=== PATIENT | female | born 1995 | race Caucasian/White ===

== ENCOUNTER 2019-04-25 22:03 | Inpatient (IN) ==
[2019-04-25 22:25] LABS: URINE SOURCE VOIDED
[2019-04-25 22:28] LABS: BILIRUBIN URINE NEGATIVE (NEGATIVE); BLOOD URINE NEGATIVE (NEGATIVE); GLUCOSE URINE NEGATIVE (NEGATIVE); KETONE URINE NEGATIVE (NEGATIVE); LEUKOCYTES URINE NEGATIVE (NEGATIVE); NITRITE URINE NEGATIVE (NEGATIVE); PH URINE 6.5; PROTEIN URINE NEGATIVE (NEGATIVE); UROBILINOGEN URINE NORMAL
[2019-04-25 22:29] LABS: CLARITY CLEAR (CLEAR); COLOR YELLOW
[2019-04-26] MEDS ORDERED: TYLENOL PO PRN (00:05)
[2019-04-26] MEDS ORDERED: ZOFRAN IV PRN (00:05)
[2019-04-26] MEDS ORDERED: PEPCID PO PRN ×2 (00:05)
[2019-04-26] MEDS ORDERED: PEPCID IV PRN (00:05)
[2019-04-26] MEDS ORDERED: REGLAN PO PRN (00:05)
[2019-04-26] MEDS ORDERED: STADOL IV PRN (00:05)
[2019-04-26] MEDS ORDERED: KEFZOL 1 GM/D5W 1 GM/50 ML IVPB IV PRN (00:05)
[2019-04-26] MEDS ORDERED: SODIUM CHLORIDE 0.9% INJ SCH (00:15)
[2019-04-26 00:38] LABS: BASO# 0.03 X1000 (0.0-0.2); BASO% 0.3 % (0.0-0.8); EOS# 0.07 X1000 (0.0-0.7); EOS% 0.6 % (0.0-10.0); HEMATOCRIT 30.3 % (37.0-47.0); HEMOGLOBIN 9.2 g/dL (12.0-16.0); IMM GRAN# 0.05 X1000 (0.0-0.04); IMM GRAN% 0.5 % (0.0-0.5); LYMPH# 1.23 X1000 (1.2-3.4); LYMPH% 11.4 % (20.5-51.1); MCH 22.9 PG (27-31); MCHC 30.4 g/dL (33-37); MCV 75.4 FL (81-99); MONO# 0.81 X1000 (0.11-0.59); MONO% 7.5 % (1.7-9.3); MPV 11.6 FL (7.4-10.4); NEUT# 8.62 X1000 (1.4-6.5); NEUT% 79.7 % (42.2-75.2); PLT 248 X1000 (130-400); RBC 4.02 XMIL (4.2-5.4); RDW 16.4 % (11.5-14.5); WBC 10.81 X1000 (4.8-10.8)
[2019-04-26] MEDS ORDERED: FENTANYL-BUPIV-NS 2 MCG-0.1% 200 ML EPIDURAL SCH (01:00)
[2019-04-26] MEDS ORDERED: NAROPIN 0.2% INJ ONE (01:00)
[2019-04-26] MEDS: LR 1,000 ML IV SCH ×2 (01:00→02:40)
[2019-04-26] MEDS ORDERED: XYLOCAINE-MPF 1% INJ PRN (01:50)
[2019-04-26] MEDS ORDERED: MINERAL OIL TOP PRN (01:50)
[2019-04-26] MEDS ORDERED: PITOCIN 30 UNITS/NS 30 UNIT/500 ML IV.SOLN ONE (03:53)
[2019-04-26 04:20] LABS: UR AMPHETAMINES QUAL NONE DETECTED (NONE DETECT); UR BARBITUATES QUAL NONE DETECTED (NONE DETECT); UR BENZODIAZEPIN QUAL NONE DETECTED (NONE DETECT); UR CANNABINOIDS QUAL NONE DETECTED (NONE DETECT); UR COCAINE QUAL NONE DETECTED (NONE DETECT); UR METHADONE QUAL NONE DETECTED (NONE DETECT); UR METHAMPHETAMINE QUAL NONE DETECTED (NONE DETECT); UR OPIATES QUAL NONE DETECTED (NONE DETECT); UR OXYCODONE QUAL NONE DETECTED (NONE DETECT); UR PCP QUAL NONE DETECTED (NONE DETECT); UR PROPOXYPHENE QUAL NONE DETECTED (NONE DETECT); UR TCA QUAL NONE DETECTED (NONE DETECT)
[2019-04-26] MEDS ORDERED: CYTOTEC PO PRN (04:48)
[2019-04-26] MEDS ORDERED: M-M-R II VACCINE SUBQ ONE (04:48)
[2019-04-26] MEDS ORDERED: PITOCIN IM PRN (04:48)
[2019-04-26] MEDS ORDERED: MINERAL OIL PO PRN (04:48)
[2019-04-26] MEDS ORDERED: HYDROXYZINE IM PRN (04:48)
[2019-04-26] MEDS ORDERED: BENADRYL PO PRN (04:48)
[2019-04-26] MEDS ORDERED: BOOSTRIX VACCINE IM ONE (04:48)
[2019-04-26] MEDS ORDERED: ATARAX PO PRN (04:48)
[2019-04-26] MEDS ORDERED: PERI MEDS (DERMOPLAST/NUPERCAINAL/TUCKS) MISC PRN (04:48)
[2019-04-26] MEDS ORDERED: BENADRYL IV PRN (04:48)
[2019-04-26] MEDS ORDERED: PITOCIN 20 UNITS/NS 20 UNITS/1,000 ML IV.SOLN IV SCH (05:00)
[2019-04-26] MEDS ORDERED: PITOCIN 30 UNITS/NS 30 UNIT/500 ML IV.SOLN IV SCH ×2 (05:00→06:00)
--- NOTE | 2019-04-26 05:25 | OPERATIVE NOTE ---
PROCEDURE DATE: 04/26/2019 PREOPERATIVE DIAGNOSIS: IUP at term in active labor. POSTOPERATIVE DIAGNOSIS: IUP at term in active labor, delivered. DESCRIPTION OF PROCEDURE: The patient delivered a viable male in cephalic presentation with Apgars 7 and 10. Weight 8 pounds 1 ounce. The was bulb suctioned upon delivery. The cord was clamped and cut. The placenta with 3 vessel cord delivered spontaneously at 04:39. The vagina was examined. There was a first-degree vaginal tear which was repaired with 3-0 Vicryl on an SH in the usual fashion. COMPLICATIONS: Nuchal cord x1. EBL: 300 mL. DISPOSITION: Mom and were both stable. [facility]
--- NOTE | 2019-04-26 05:29 | HISTORY AND PHYSICAL ---
CHIEF COMPLAINT: Contractions. HISTORY OF PRESENT ILLNESS: The patient is a 23-year-old G3, P2, 0-0-2 at 38 and 3 weeks by a 12 week ultrasound, who presented to labor and delivery with complaint of contractions. At the time of presentation, she was 2 to 3 cm dilated and 50% effaced. She was allowed to sit for an hour, and her cervix changed to 4 cm. The patient was admitted. She denies any leakage of fluid or vaginal bleeding. REVIEW OF SYSTEMS: No fevers, chills, chest pain, shortness of breath, nausea, vomiting, dysuria, hematuria, or rectal bleeding. PAST MEDICAL HISTORY: Anemia. MEDICATIONS: vitamins. ALLERGIES: None. PAST SURGICAL HISTORY: None. FAMILY HISTORY: Noncontributory. SOCIAL HISTORY: No tobacco, alcohol, or drug use. PHYSICAL EXAMINATION: VITAL SIGNS: Temperature 97.7 degrees, pulse 92, respiratory rate 18, and blood pressure 110/68. GENERAL: Awake, alert, and oriented in no acute distress. CARDIOVASCULAR: Regular rate and rhythm. No gallops, murmurs, or rubs. LUNGS: Clear to auscultation bilaterally. ABDOMEN: Positive bowel sounds. Soft. Gravid. Nontender. Nondistended. EXTREMITIES: No cyanosis, clubbing, or edema. ASSESSMENT: 1. IUP at term in active labor. 2. Anemia. 3. Rubella nonimmune. 4. GBS negative. PLAN: 1. Admit to Labor and Delivery. 2. Epidural upon request. 3. Pitocin augmentation as needed.
[2019-04-26] MEDS: MOTRIN PO PRN ×2 (06:33→20:19)
[2019-04-26] MEDS: NORCO-5 PO PRN ×3 (06:33→20:18)
[2019-04-26] MEDS: PERICOLACE PO SCH (20:18)
[2019-04-26] MEDS: AMBIEN PO PRN (20:18)
[2019-04-27] MEDS: MOTRIN PO PRN ×3 (05:52→22:46)
[2019-04-27 06:52] LABS: BASO# 0.02 X1000 (0.0-0.2); BASO% 0.3 % (0.0-0.8); EOS# 0.13 X1000 (0.0-0.7); EOS% 1.7 % (0.0-10.0); HEMATOCRIT 24.7 % (37.0-47.0); IMM GRAN# 0.03 X1000 (0.0-0.04); IMM GRAN% 0.4 % (0.0-0.5); LYMPH# 1.19 X1000 (1.2-3.4); LYMPH% 15.5 % (20.5-51.1); MCH 22.1 PG (27-31); MCHC 28.3 g/dL (33-37); MCV 77.9 FL (81-99); MONO# 0.64 X1000 (0.11-0.59); MONO% 8.3 % (1.7-9.3); MPV 12.1 FL (7.4-10.4); NEUT# 5.67 X1000 (1.4-6.5); NEUT% 73.8 % (42.2-75.2); PLT 202 X1000 (130-400); RBC 3.17 XMIL (4.2-5.4); RDW 16.3 % (11.5-14.5); WBC 7.68 X1000 (4.8-10.8)
--- NOTE | 2019-04-27 08:06 | OB/GYN PROGRESS NOTE ---
Progress Note OB - . OB Progress Note: Vital Signs - 24 hr 04/26/19 11:50 04/26/19 16:10 04/26/19 20:23 Temperature 97.4 F L 97.5 F L 96.9 F L Pulse Rate 77 94 H 82 Respiratory Rate 16 16 18 Blood Pressure 117/72 117/80 118/81 O2 Sat by Pulse Oximetry 100 99 100 04/27/19 01:53 04/27/19 05:47 04/27/19 07:44 Temperature 96.5 F L 97.6 F 97.2 F L Pulse Rate 87 73 75 Respiratory Rate 18 18 20 Blood Pressure 91/50 104/69 111/72 O2 Sat by Pulse Oximetry 97 99 98 Laboratory Results - last 24 hr 04/27/19 05:14 WBC 7.68 RBC 3.17 L Hgb 7.0 L D Hct 24.7 L MCV 77.9 L MCH 22.1 L MCHC 28.3 L RDW Std Deviation 16.3 H Plt Count 202 MPV 12.1 H Immature Gran % (Auto) 0.4 Neut % (Auto) 73.8 Lymph % (Auto) 15.5 L Sutter % (Auto) 8.3 Eos % (Auto) 1.7 Baso % (Auto) 0.3 Immature Gran # (Auto) 0.03 Neut # (Auto) 5.67 Lymph # (Auto) 1.19 L Sutter # (Auto) 0.64 H Eos # (Auto) 0.13 Baso # (Auto) 0.02 Pt doing well no complaints. pain controlled minimal lochia bottlefeeding uns ure about BC O Vitals as above Gen: AAOx3 NAD CV: RRR no g/m/r Lungs: CTAB no w/r/r Abd: +BS soft NT/ND fundus firm at u-2 Ext: no c/c/e Labs as above A: PPD#1 s/p anemia RNI P: cont routine pp care
[2019-04-27] MEDS: NORCO-5 PO PRN ×2 (13:39→20:40)
[2019-04-27] MEDS: AMBIEN PO PRN (20:40)
[2019-04-27] MEDS: PERICOLACE PO SCH (20:40)
--- NOTE | 2019-04-28 07:21 | OB/GYN PROGRESS NOTE ---
Progress Note OB - . OB Progress Note: Vital Signs - 24 hr 04/27/19 07:44 04/27/19 11:50 04/27/19 15:06 Temperature 97.2 F L 98.2 F 97.6 F Pulse Rate 75 81 85 Respiratory Rate 20 20 20 Blood Pressure 111/72 97/57 O2 Sat by Pulse Oximetry 98 100 99 04/27/19 20:38 Temperature 97.0 F L Pulse Rate 87 Respiratory Rate 18 Blood Pressure 119/74 O2 Sat by Pulse Oximetry 100 No complaints, denies PIH/Orthostatic symptoms A&O NAD CTAB RRR S/ND/Fundus firm Normal lochia 1+ bilateral HIEN POD 2 s/p doing well - D/C home - follow up Dr. Campbell 6 wks or prn.
[2019-04-28] MEDS: MOTRIN PO PRN (08:20)
[2019-04-28] MEDS: NORCO-5 PO PRN (08:21)
[2019-04-28 08:41] VITALS: BP 113/69
== END 2019-04-28 12:47 | disposition home or self-care (01) | DRG 807 ==
LOC: P.NBC 22:03 → P.LD 22:05
PROVIDERS: ADMIT Obstetrics & Gynecology; ATTEND Obstetrics & Gynecology